=== PATIENT | male | born 1945 | race Caucasian/White ===

== ENCOUNTER 2020-06-16 11:33 | Outpatient (CLI) | payer MEDICARE, SELFPAY ==
--- NOTE | ~2020-06-16 | XR_ITS ---
XR abdomen/kub 1V DATE: 06/16/2020 11:48 INDICATION: Nausea and vomiting TECHNIQUE: AP projection, 2 views COMPARISON: None FINDINGS: There is prominent rotatory levoscoliosis and severe multilevel degenerative disc disease o f the lumbar spine. There is deformity of the right iliac crest possibly related to bone graft harves ting versus old trauma. Surgical clips overlie the right upper quadrant, consistent with cholecystectomy. There is no evidence of bowel obstruction. No apparent intraperitoneal free air or visceromegaly. Art erial calcifications are noted including prominent common and femoral artery calcifications, abdomina l aortic and renal artery calcifications. The lung bases appear clear. Heart size appears normal. IMPRESSION: Status post cholecystectomy Nonspecific bowel gas pattern Reviewed, dictated and finalized at [facility]. Reviewed, dictated and finalized at [facility].
== END 2020-06-16 11:34 | disposition home or self-care (01) ==
LOC: ANHIMG 11:41
PROVIDERS: PCP Family Medicine; Visit Provider Family Medicine
DX: R11.2 Nausea with vomiting, unspecified (principal); Z90.49 Acquired absence of other specified parts of digestive tract
CPT/HCPCS: 74018

== ENCOUNTER 2021-06-27 11:10 | Outpatient (CLI) | payer MEDICARE, SELFPAY ==
--- NOTE | ~2021-06-27 | US_ITS ---
EXAMINATION: US renal BI EXAM DATE: 06/27/2021 11:29 INDICATION: I10 - Essential (primary) hypertension HTN. TECHNIQUE: Multiple grayscale and Doppler images of the kidneys were obtained (by a technologist who performed the scan) and subsequently reviewed. There is no prior study for comparison. FINDINGS: Right kidney: There is normal contour and echogenicity. It measures 8.3 x 4.9 x 4.2 centimeters. Th ere are no focal renal lesions identified. There is no hydronephrosis. Left kidney: There is normal contour and echogenicity. It measures 8.8 x 4.4 x 4.9 centimeters. The re are no focal renal lesions identified. There is no hydronephrosis. Prostatomegaly, prostate bulging into the bladder. IMPRESSION: 1. Sonographically unremarkable kidneys. 2. Prostatomegaly. Reviewed, dictated and finalized at [facility].
== END 2021-06-27 11:11 | disposition home or self-care (01) ==
LOC: ANHIMG 11:11
PROVIDERS: PCP Family Medicine; Visit Provider Nurse Practitioner Family
DX: I10 Essential (primary) hypertension (principal); N28.9 Disorder of kidney and ureter, unspecified; N40.0 Benign prostatic hyperplasia without lower urinary tract symptoms
CPT/HCPCS: 76775

== ENCOUNTER 2025-06-10 11:56 | Outpatient (CLI) | payer MEDICARE, SELFPAY ==
--- OUTSIDE RECORDS SUMMARY | 2025-06-10 11:59 | XMS_ITS | Referral Summary ---
Author Organization [facility] [address] Address [address] [place] [address] Phone Care Team Providers Care Botany Teacher Name Role Phone Clara Pena MD Primary Care Provider Allergies Active Allergy Reactions Criticality Noted Date Comments Prednisone Nausea only Low 05/25/2019 1st time reaction 10/2018 Warfarin Nausea only Low Medications tamsulosin (FLOMAX) 0.4 mg extended release capsule TAKE ONE CAPSULE BY MOUTH ONCE DAILY 30 MINUTES FOLLOWING THE SAME MEAL 30 capsule 1 9 Active fenofibrate (TRIGLIDE) 160 mg tablet TAKE ONE TABLET BY MOUTH ONCE DAILY 90 tablet 11 9 Active HYDROcodone-adryan taminophen (NORCO) 5-325 mg per tablet Take 1 tablet by mouth every 8 (eight) hours as needed for pain 9 Active busPIRone (BUSPAR) 5 mg tablet Take 1 tablet (5 mg total) by mouth 2 (two) times a day as needed 3 Active lactulose 0.67 gram/mL solution Take 15 mL (10 g total) by mouth daily 3 Active lisinopriL (PRINIVIL,ZESTR IL) 40 mg tablet Take 1 tablet (40 mg total) by mouth daily 3 Active QUEtiapine (SEROquel) 50 mg tablet Take 1 tablet (50 mg total) by mouth nightly 3 Active amLODIPine (NORVASC) 5 mg tabletIndicatio ns:hypertension Take 1 tablet (5 mg total) by mouth daily 30 tablet 4 Active aspirin 81 mg chewable tabletIndicatio ns:acute myocardial infarction Take 1 tablet (81 mg total) by mouth daily 30 tablet 4 Active atorvastatin (LIPITOR) 20 mg tablet Take 1 tablet (20 mg total) by mouth daily 30 tablet 4 Active carvediloL (COREG) 12.5 mg tablet Take 1 tablet (12.5 mg total) by mouth 2 (two) times a day with meals 60 tablet 11 4 Active clopidogreL (PLAVIX) 75 mg tablet Take 1 tablet (75 mg total) by mouth daily 30 tablet 11 4 Active nitroglycerin (NITROSTAT) 0.4 mg SL tabletIndicatio ns:acute myocardial infarction Place 1 tablet (0.4 mg total) under the tongue every 5 (five) minutes as needed for chest pain 90 tablet [address] (PROTONIX) 40 mg EC tablet Take 20 mg by mouth every morning 4 Active furosemide (LASIX) 20 mg tablet Take 1 tablet (20 mg total) by mouth every morning 4 Active cephalexin (KEFLEX) 500 mg capsule TAKE 1 CAPSULE BY MOUTH EVERY 8 HOURS 4 Active Active Problems Problem Noted Date Diagnosed Date NSTEMI (non-ST elevated myocardial infarction) 0 01/04/2024 Elevated troponin 01/03/2024 Small bowel obstruction 04/11/2023 Acute kidney injury 04/11/2023 Bowel obstruction 04/11/2023 Spinal stenosis of lumbar re 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 Complains some low back pain as well he has absolutely no sciatica he can do a straight leg raise without difficulty. He has good flexion of his hips. However on palpating over lateral and posterior hip left side he has considerable pain in this come in standing and beginning walking is pain in that area as well. Plans at this time trial of prednisone 20 mg daily for 2 weeks patient advised given a progress report in 2 weeks. Sacral back pain 09/11/2018 Assessment & Plan (09/11/2018 2:47 PM CDT): Pain over the sacrum the x7 days a no significant radiculopathy pain is very because the worse with movement getting up from a chair in walking.. Examination no masses felt some pain on palpating over sacral. Plans try Sarah prednisone 40 mg a day for 2 days and 20 mg for 6 days.. This fails proceed with low back x-rays.. Exposure to hepatitis C 05/13/2018 Assessment & Plan (05/13/2018 2:59 PM CDT): Hepatitis C antibody will be ordered as recommended by CDC. Well adult exam 05/13/2018 Immunization due 05/13/2018 Assessment & Plan (05/13/2018 3:36 PM CDT): Patient's [facility] in [facility] states that his pneumonia vaccine is due this is inaccurate patient had a Pneumovax vaccine September 24, 2012 and Prevnar was given 11/17/2014. At this time is declining the Tdap and zoster vaccine. Other seborrheic keratosis 05/13/2018 Assessment & Plan (05/13/2018 3:37 PM CDT): Lesion right-sided scalp seborrheic keratosis versus early melanoma. Referred to Dr. Dai for removal if deemed necessary. Type 2 diabetes mellitus wit h hyperosmolarity without coma, without long-term current use of insulin 08/20/2017 Assessment & Plan (11/06/2018 3:49 PM PAPER PRODUCTION ENGINEER): Diabetes has been very well controlled his hemoglobin HgbA1c is been 6.3 twice in the past 14 months. No change in therapy patient's body mass index 26.71 no read need to lose weight or make any lifestyle adjustments. Assessment & Plan (09/11/2018 5:58 PM CDT): Diabetes is unchanged. Continue current treatment regimen. Reminded to bring in blood sugar diary at next visit. Dietary recommendations for ADA diet. Regular aerobic exercise. Discussed ways to avoid symptomatic hypoglycemia. Discussed sick day management. Discussed foot care. Diabetes will be reassessed in 6 months. Patient's HgbA1c is been consistently less than 6.5 Assessment & Plan (05/13/2018 2:57 PM CDT): Diabetes is unchanged. Continue current treatment regimen. Reminded to bring in blood sugar diary at next visit. Dietary recommendations for ADA diet. Discussed ways to avoid symptomatic hypoglycemia. Discussed sick day management. Discussed foot care. Diabetes will be reassessed in 6 months. Diabetes well controlled for the past 2 years. Patient's courage to get an eye exam vital have 1 on record. I discussed with importance to get his eyes checked is a diabetic. This needs to be done on annual basis. Patient's foot exam was perfectly normal. Assessment & Plan (08/20/2017 4:17 PM CDT): Diabetes is unchanged. Continue current treatment regimen. Reminded to bring in blood sugar diary at next visit. Dietary recommendations for ADA diet. Discussed ways to avoid symptomatic hypoglycemia. Discussed sick day management. Discussed foot care. Diabetes will be reassessed in 6 months. Patient reminded to make sure he gets his eye exam annually. Diabetes continues to be in great shape. Lipid profile is included with his diabetes study. Hyperlipidemia 04/16/2014 Overview (03/05/2017): Hyperlipidemia Assessment & Plan (05/13/2018 2:59 PM CDT): Will update patient's lipid profile today. Patient tolerating medications well previous lipid profile had only minor changes present. Benign prostatic hyperplasia 04/16/2014 Overview (03/07/2017): BPH (benign prostatic hypertrophy) Assessment & Plan (05/13/2018 3:39 PM CDT): Symptom control with use of Flomax. Uncontrolled hypertension 04/16/2014 Overview (03/07/2017): Hypertension Assessment & Plan (11/06/2018 3:50 PM PAPER PRODUCTION ENGINEER): . Patient's blood pressure is elevated higher than usual today secondary to being in pain no change in medications Assessment & Plan (09/11/2018 5:59 PM CDT): Hypertension is unchanged. Continue current treatment regimen. Dietary sodium restriction. Regular aerobic exercise. Continue current medications. Blood pressure will be reassessed at the next regular appointment. Assessment & Plan (05/13/2018 2:57 PM CDT): Hypertension is unchanged. Continue current treatment regimen. Dietary sodium restriction. Continue current medications. Blood pressure will be reassessed at the next regular appointment. Assessment & Plan (08/20/2017 4:17 PM CDT): Hypertension is unchanged. Continue current treatment regimen. Dietary sodium restriction. Continue current medications. Blood pressure will be reassessed at the next regular appointment. Immunizations Immunization Administration Dates Next Due Influenza, Unspecified 09/02/2018,08/27/2017 Pneumococcal Conjugate PCV 13 03/24/2015, 014 Pneumococcal Conjugate, Unspecified 03/21/2015,1 01/18/2014 Social History Tobacco Use Types Packs/Day Years Used Date Smoking Tobacco: Former Smokeless Tobacco: Never Tobacco Cessation:Counseling Given: Not Answered Alcohol Use Standard Drinks/Week Comments No 0 (1 standard drink = 0.6 oz pur e alcohol) [facility] Utilities Answer Date Recorded In the past 12 months has [employer], [employer], or water [employer] threatened to shut off services in your home? No 01/05/2024 Social Connection and Isolat ion Panel [NHANES] Answer Date Recorded In a typical week, how many times do you talk on the phone with family, friends, or neighbors? Twice a week 01/05/2024 How often do you get togethe r with friends or relatives? More than three times a week 01/05/2024 Attends [employer] Services Not on file 01/05 Active Member of Clubs or Organizations Not on f ile 01/05/2024 Attends Club or Organization Meetings Not on terese e 01/05/2024 Are you , , di vorced, , never , or living with a partner? 01/05/2024 AUDIT-C Answer Date Recorded Q1: How often do you have a drink containing alc ohol? Never 01/03/2024 Average Number of Drinks Not on file 024 Frequency of Binge Drinking Not on file 01/2024 Overall Financial Resource Strain (CARDIA) Answe r Date Recorded How hard is it for you to pa y for the very basics like food, housing, medical care, and heating? Not hard at all 01/05/2024 PHQ-2 Answer Date Recorded PHQ-2 Total Score (If total score is 3 or more points, staff should administer the PHQ-9) 0 01/03/2024 Hunger Vital Sign Answer Date Recorded Within the past 12 months, y ou worried that your food would run out before you got the money to buy more. Never true 01/05/20 24 Within the past 12 months, t he food you bought just didn't last and you didn't have money to get more. Never true 01/05/2024 PRAPARE - Transportation Answer Date Re corded In the past 12 months, has l ack of transportation kept you from medical appointments or from getting medications? No 03/2024 In the past 12 months, has l ack of transportation kept you from meetings, work, or from getting things needed for daily living? No 01/05/2024 Housing Stability Vital Sign Answer Kenneth e Recorded In the last 12 months, was t here a time when you were not able to pay the mortgage or rent on time? No 01/05/2024 In the last 12 months, how many places have you lived? 2 01/05/2024 In the last 12 months, was t here a time when you did not have a steady place to sleep or slept in a skilled nursing (including now)? No 01/05/2024 Personal Safety Answer Date Recorded Have you ever been in or are you currently in a harmful physical or emotional relationship or is someone making you feel afraid or unsafe? Denies 01/03/2024 Sex and Gender Information Value Date Recorded Sex Assigned at Not on file Legal Sex Male 10:07 AM PAPER PRODUCTION ENGINEER Gender Identity Not on file Sexual Orientation Not on file Last Filed Vital Signs Vital Sign Reading Time Taken Comments Blood Pressure 152/99 09/10/2024 2:02 PM CDT Pulse 118 09/10/2024 2:02 PM CDT Temperature 36.3 C (97.4 F) 01/06/2024 3:00 PM PAPER PRODUCTION ENGINEER Respiratory Rate 18 09/10/2024 2:02 PM CDT Oxygen Saturation 100% 01/06/2024 3:00 PM PAPER PRODUCTION ENGINEER Inhaled Oxygen Concentration - - Weight 66.7 kg (147 lb) 09/10/2024 2:02 PM CDT Height 172.7 cm (5' 8) 09/10/2024 2:02 PM CDT Body Mass Index 22.35 09/10/2024 2:02 PM CDT Plan of Treatment Not on file Medical Devices Implanted Type Area Sled Maker Device Identifier Shelf Expiration Date Model / Serial / Lot [employer]/C R Bard 6x3in Large Pore Knit Monofilament Smooth [place] [id number] - [id number] Implanted:Qty: 1 on 04/11/2023 by Cesario Hook MD at [facility] Mesh Left: Inguinal [employer]/C R Bard [id number] 08/28/2027 [id number] / / [id number] [employer] Noman Synergy Xd Monorail 2.5mm 28mm 144cm Delivery System 1 Access [id number] - [id number] Implanted:Qty: 1 on 01/05/2024 by Lake Cook MD at [facility] Stent [employer] Noman 09/10/2024 [id number] / / [id number] Procedures Procedure Name Priority Date/Time Associated Diagnosis Comments EGFR Routine 01/06/2024 3:49 AM PAPER PRODUCTION ENGINEER HEMOGLOBIN A1C Routine 01/04/2024 2:16 AM PAPER PRODUCTION ENGINEER LIPID PANEL Routine 01/04/2024 2:16 [address]ER [address] ABDOMEN PELVIS W CONTRAST ED 04/11/2023 2:58 AM CDT ALBUMIN CREATININE RATIO, URINE Routine 05/11/2018 3:50 PM CDT Type 2 diabetes mellitus with hyperosmolarity without coma, without long-term current use of insulin (HCC) from Last 3 Months or Most Recently Relevant to Health Maintenance Results * eGFR (01/06/2024 3:49 AM PAPER PRODUCTION ENGINEER) eGFR 74 mL/min/1. 73 m2 [facility] ([place]) Comment: Interpretive Data Reference Interval Normal >/= 90 mL/min/1.73m2 Mildly decreased* 60 - 89 mL/min/1.73m2 Mildly to moderately decreased 45 - 59 mL/min/1.73m2 Moderately to severely decreased 30 - 44 mL/min/1.73m2 Severely decreased 15 - 29 mL/min/1.73m2 Kidney Failure < 15 mL/min/1.73m2 *Relative to young adult level Estimated glomerular filtration rate is determined by the 2020 CKD-EPI equation recommended by the National Kidney Foundation (A Unifying Approach to GFR Estimation: Recommendations of the NKF-ASK Task Force on Reassessing the Inclusion of Race in Diagnosing Kidney Disease, JASN 2020). The CKD-EPI equation should not be used for patients with unstable renal function and has not been validated in children and those over 70. Current interpretive data was last reviewed 2021. Blood 01/06/2024 3:49 AM PAPER PRODUCTION ENGINEER 01/06/2024 3:56 AM PAPER PRODUCTION ENGINEER us Susu Howard MD LAB BLOOD ORDERABLES Fi nal Result [facility] ([place]) [facility] Department [place] [address] * (ABNORMAL) Hemoglobin A1c (01/04/2024 2:16 AM PAPER PRODUCTION ENGINEER) Hgb A1C 6.1(H) 4.0 - 5.6 % [facility] ([place]) Estimated Average Glucose 128 mg/dL [facility] ([facility]) Comment: The ADA recommends reporting an estimated Average Glucose (eAG) with all Hemoglobin A1c results using the equation derived from a study of 507 normal and diabetic adults. Minority populations were underrepresented and children were not included. (Diabetes Care 31:8164-1022, 2008). The eAG is not equivalent to a fasting glucose. Blood 01/04/2024 2:16 AM PAPER PRODUCTION ENGINEER 01/04/2024 2:53 AM PAPER PRODUCTION ENGINEER us Susu Howard MD LAB BLOOD ORDERABLES Fi nal Result [facility] ([facility]) [facility] Department [place] [address] * (ABNORMAL) Lipid panel (01/04/2024 2:16 AM PAPER PRODUCTION ENGINEER) Cholesterol 180 30 - 199 mg/dL [facility] ([facility]) Comment: Interpretive Data Ages < or = 19 years Acceptable: <170 mg/dL Borderline high: 170-199 mg/dL High: >or= 200 mg/dL Ages > or = 20 years Desirable: <200 mg/dL Borderline high: 200-239 mg/dL High: >or= 240 mg/dL Literature References: 1. Expert Panel on Integrated Guidelines for Cardiovascular Health and Risk Reduction in Children and Adolescents. Pediatrics 2011;128:S213 2. NCEP Expert Panel. Circulation 2004;110:227 Current Interpretive Data was last revised on 2018. Triglycerides 227(H) <=149 mg/dL [facility] ([facility]) Comment: Interpretive Data Ages < or = 9 years Acceptable: <75 mg/dL Borderline high: 75-99 mg/dL High: >or= 100 mg/dL Ages 10 to 20 years Acceptable: <90 mg/dL Borderline high: 90-129 mg/dL High: >or= 130 mg/dL Ages > or = 20 years Desirable: <150 mg/dL Borderline high: 150-199 mg/dL High: 200-499 mg/dL Very high: >or= 499 mg/dL Literature References: 1. Expert Panel on Integrated Guidelines for Cardiovascular Health and Risk Reduction in Children and Adolescents. Pediatrics 2011;128:S213 2. NCEP Expert Panel. Circulation 2004;110:227 Current Interpretive Data was last revised on 2018. HDL 29(L) >=40 mg/dL [facility] ([facility]) Comment: Interpretive Data Ages < or = 19 years Acceptable: >45 mg/dL Borderline low: 40-45 mg/dL Low: <40 mg/dL Ages > or = 20 years Desirable: >or= 60 mg/dL Low: <40 mg/dL Literature References: 1. Expert Panel on Integrated Guidelines for Cardiovascular Health and Risk Reduction in Children and Adolescents. Pediatrics 2011;128:S213 2. NCEP Expert Panel. Circulation 2004;110:227 Current Interpretive Data was last revised on 2018. LDL, calculated 106 <=129 mg/dL [facility] ([facility]) Comment: Interpretive Data Ages < or = 19 years Acceptable: <110 mg/dL Borderline high: 110-129 mg/dL High: >or= 130 mg/dL Ages > or = 20 years Optimal: <100 mg/dL Near optimal: 100-129 mg/dL Borderline high: 130-159 mg/dL High: >160 mg/dL Literature References: 1. Expert Panel on Integrated Guidelines for Cardiovascular Health and Risk Reduction in Children and Adolescents. Pediatrics 2011;128:S213 2. NCEP Expert Panel. Circulation 2004;110:227 Current Interpretive Data was last revised on 2018. Non-HDL Cholesterol 151 mg/dL [facility] ([facility]) Comment: Interpretive Data Ages < or = 19 years Acceptable: <120 mg/dL Borderline high: 120-144 mg/dL High: >145 mg/dL Ages > or = 20 years When triglycerides are >200 mg/dL, Non-HDL cholesterol is a secondary target of therapy with treatment goals that are 30 mg/dL greater than the LDL cholesterol target. Literature References: 1. Expert Panel on Integrated Guidelines for Cardiovascular Health and Risk Reduction in Children and Adolescents. Pediatrics 2011;128:S213 2. NCEP Expert Panel. Circulation 2004;110:227 Current Interpretive Data was last revised on 2018. Chol/HDL ratio 6 [facility] R [facility] ([place]) Blood 01/04/2024 2:16 AM PAPER PRODUCTION ENGINEER 01/04/2024 2:53 AM PAPER PRODUCTION ENGINEER us Susu Howard MD LAB BLOOD ORDERABLES Fi nal Result [facility] ([facility]) 1 [facility] Department [place] [address] * CT Abdomen Pelvis W Contrast (04/11/2023 2:58 AM CDT) Anatomical Region Laterality Modality Body N/A Computed Tomogra phy 04/11/2023 3:24 AM CDT Narrative 04/11/2023 3:30 AM CDT EXAM DESCRIPTION: CT ABDOMEN PELVIS W CONTRAST REASON FOR STUDY: Bowel obstruction high-grade suspected C/o nausea, vomiting, and generalized abdominal pain for 2-3 days. Pt states coffee ground emesis. Last bowel movement was 2 days ago. Hx of HTN, type 2 diabetes mellitus No abdominal surgery Pt was hydrated prior to exam TECHNIQUE: CT scan of the abdomen and pelvis was performed with intravenous and without oral contrast using helical scanning technique with dynamic intravenous contrast injection. Reconstructed coronal and sagittal MPR images were reviewed. All images stored on PACS. Automated exposure control was used as a dose optimization technique for this examination. CONTRAST TYPE/DOSE: 100mL of IOVERSOL 350 MG IODINE/ML INTRAVENOUS SYRINGE injected via right arm IV . COMPARISON: None Available . REFERENCE: Per ACR white paper recommendations, unless otherwise specified no follow-up imaging is recommended for incidental renal and adrenal lesions per consensus recommendations based on imaging criteria. Further lab evaluation could be pursued based on clinical findings. FINDINGS: LOWER CHEST: No significant findings. LIVER: Normal size. No cystic or solid masses. GALLBLADDER: Surgically absent. BILE DUCTS: No intrahepatic or extrahepatic biliary ductal dilatation. SPLEEN: Normal size. No focal lesions. PANCREAS: No cystic or solid masses. No significant calcifications. No adjacent inflammation or peripancreatic fluid collections. Pancreatic duct not dilated. ADRENALS: Normal. KIDNEYS/URINARY TRACT: No significant cystic or solid masses. No evidence of nephrolithiasis. No hydronephrosis or hydroureter. Symmetric enhancement. The urinary bladder is unremarkable. GI: Multiple dilated loops of small bowel compatible with small bowel obstruction. These measure up to 5 cm in diameter. Transition point is in the left inguinal hernia containing a short segment loop of small bowel. PERITONEUM: No ascites or pneumoperitoneum RETROPERITONEUM: No mass or adenopathy. REPRODUCTIVE: No significant abnormality. VASCULATURE: No abdominal aortic aneurysm. MUSCULOSKELETAL: No significant abnormality. OTHER: No other abnormality. IMPRESSION: Small-bowel obstruction with transition point in the left inguinal hernia containing a short segment loop of small bowel. These results were communicated by phone to the ordering provider at the time of interpretation, 3:30 a.m. 04/11/2023. . Central Standard Time (PAPER PRODUCTION ENGINEER) THIS IS AN ELECTRONICALLY VERIFIED FINAL REPORT 04/11/2023 3:30 AM - Electronically signed by Von Long M.D. RW: LEOPOLDO Report ID: [id number] Reading Location: [place] [address] Procedure Note Von Long MD - 04/11/2023 EXAM DESCRIPTION: CT ABDOMEN PELVIS W CONTRAST REASON FOR STUDY: Bowel obstruction high-grade suspected C/o nausea, vomiting, and generalized abdominal pain for 2-3 days. Ptstates coffee ground emesis. Last bowel movement was 2 days ago. Hx of HTN, type2 diabetes mellitus No abdominal surgery Pt was hydrated prior to exam TECHNIQUE: CT scan of the abdomen and pelvis was performed withintravenous and without oral contrast using helical scanning technique with dynamic intravenous contrast injection. Reconstructed coronal and sagittal MPRimages were reviewed. All images stored on PACS. Automated exposure control was used as a dose optimization technique forthis examination. CONTRAST TYPE/DOSE: 100mL of IOVERSOL 350 MG IODINE/ML INTRAVENOUSSYRINGE injected via right arm IV . COMPARISON: None Available . REFERENCE: Per ACR white paper recommendations, unless otherwise specifiedno follow-up imaging is recommended for incidental renal and adrenal lesionsper consensus recommendations based on imaging criteria. Further labevaluation could be pursued based on clinical findings. FINDINGS: LOWER CHEST: No significant findings. LIVER: Normal size. No cystic or solid masses. GALLBLADDER: Surgically absent. BILE DUCTS: No intrahepatic or extrahepatic biliary ductal dilatation. SPLEEN: Normal size. No focal lesions. PANCREAS: No cystic or solid masses. No significant calcifications. No adjacent inflammation or peripancreatic fluid collections. Pancreatic ductnot dilated. ADRENALS: Normal. KIDNEYS/URINARY TRACT: No significant cystic or solid masses. Noevidence of nephrolithiasis. No hydronephrosis or hydroureter. Symmetric enhancement. The urinary bladder is unremarkable. GI: Multiple dilated loops of small bowel compatible with small bowel obstruction. These measure up to 5 cm in diameter. Transition point isin the left inguinal hernia containing a short segment loop of small bowel. PERITONEUM: No ascites or pneumoperitoneum RETROPERITONEUM: No mass or adenopathy. REPRODUCTIVE: No significant abnormality. VASCULATURE: No abdominal aortic aneurysm. MUSCULOSKELETAL: No significant abnormality. OTHER: No other abnormality. IMPRESSION: Small-bowel obstruction with transition point in the left inguinal hernia containing a short segment loop of small bowel. These results were communicated by phone to the ordering provider at the time of interpretation, 3:30 a.m. 04/11/2023. . Central Standard Time(PAPER PRODUCTION ENGINEER) THIS IS AN ELECTRONICALLY VERIFIED FINAL REPORT 04/11/2023 3:30 AM - Electronically signed by Von Long M.D. RW: LEOPOLDO Report ID: [id number] Reading Location: [id number] us Neptali Go MD IMG CT PROCEDURES Final Result * Microalbumin / creatinine ratio, urine, random (05/11/2018 3:50 PM CDT) Creatinine, ur 74 20 - 370 mg/dL [facility] [employer] Microalbumin, ur 0.3 See Note: mg/dL [facility] [employer] Comment: Reference Range: Reference Range Not established Microalbumin/creat ratio 4 <30 mcg/mg creat [facility] [employer] Comment: The ADA defines abnormalities in albumin excretion as follows: Category Result (mcg/mg creatinine) Normal <30 Microalbuminuria 30-299 Clinical albuminuria > OR = 300 The ADA recommends that at least two of three specimens collected within a 3-6 month period be abnormal before considering a patient to be within a diagnostic category. 05/11/2018 3:50 PM CDT 05/11/2018 3:51 PM CDT Narrative Resulting Agency Comment Performing Organization Information: Site ID: [place] Name: [facility] [place] Address: [address] [place] [address] Director: Drake Cartwright D.O., MPH us Drake Palma MD LAB URINE ORDERABLES Final Result [facility] [place] from Last 3 Months or Most Recently Relevant to Health Maintenance Insurance MEDICARE [facility] MEDICARE MEDICARE [facility] MEDICARE BLUE CROSS MEDICARE SUPPLEMENT Advance Directives For more information, please contact: [phone] * Full Code (Latest Code Status on File) Date Activated Date Inactivated Comments 01/03/2024 8:37 PM 01/06/2024 9:11 PM * Full Code Date Activated Date Inactivated Comments 01/03/2024 7:42 PM 01/03/2024 8:37 PM * Full Code Date Activated Date Inactivated Comments 04/11/2023 8:32 AM 04/16/2023 10:04 PM Healthcare Agents on File Name Relationship Healthcare Agent Relationshi p Communication Winston Rivers Daughter Health Care Agent Care Teams Botany Teacher Relationship Specialty Start Date End Date Clara Pena MD [address] [facility] [address] [place] [address] PCP - General Family Medicine 01/28/23
--- OUTSIDE RECORDS SUMMARY | 2025-06-10 11:59 | XMS_ITS | Clinical Summary ---
Author Organization [facility] Address [address] [place] [address] Care Team Providers Care Centrifugal Chiller Technician Name Role Phone Clara Pena MD Primary Care Provider [phone] Social History Tobacco Use Types Packs/Day Years Used Date Smoking Tobacco: Never Assessed Sex and Gender Information Value Date Recorded Sex Assigned at Not on file Legal Sex Male 12:21 AM CDT Gender Identity Not on file Sexual Orientation Not on file Plan of Treatment Health Maintenance Due Date Last Done Comments Hepatitis C Virus (HCV) Screening 1945 TdaP Immunization 1945 Zoster Immunization (2 of 3) 07/16/2013 05/21/2013 Pneumococcal Immunization (50+ years) (2 of 2 - PPSV23) 03/24/2016 03/24/2015, 03/21/2015, 11/17/2014, Additional history exists Respiratory Syncytial Virus (RSV) Immunization (Adult) (1 - 1-dose 75+ series) 2018 SARS-COV-2 Immunization ( season) 2024 12/19/2021, 02/23/2021, 01/26/2021 Influenza Immunization (#1) 08/01/202512/01, 09/04/2020, 08/12/2019, Additional history exists Hepatitis B Immunization Aged Out No longer eligible based on patient's age to complete this topic Human Papillomavirus (HPV) Immunization Aged Out No longer eligible based on patient's age to complete this topic Meningococcal Immunization (ACWY) Aged Out No longer eligible based on patient's age to complete this topic Rotavirus Immunization Aged Out No lo nger eligible based on patient's age to complete this topic Insurance MEDICARE Member Subscriber Plan / Payer (Ef fective 2008-Present) Name:Drake Caceres Member ID:[id number] Relation to Subscriber:Self Name:Drake Caceres Subscriber ID:[id number] Payer ID:[id number] Group ID:Not on file Type:Not on file Address: [address] [facility] [place] [address] [facility] Care Teams Centrifugal Chiller Technician Relationship Specialty Start Date End Date Clara Pena MD [address] [facility] [address] [facility] [address] [place] [address] PCP - General Family Medicine 05/12/23
--- OUTSIDE RECORDS SUMMARY | 2025-06-10 11:59 | XMS_ITS | Clinical Summary ---
Author Organization [facility] Address [address] [place] [address] Care Team Providers Care Animal Rides Manager Name Role Phone Drake Palma MD Primary Care Provider [phone] Source Comments [facility],non-owned Affiliates and Associated Physician Practices is amultiple site organization consisting of ambulatory clinics and hospital sitesin [place], [place], [place] and [place]. This disclosure is being madepursuant to the Care Everywhere program and may not contain all information available regarding this patient. Last updated 18.[facility] Allergies Active Allergy Reactions Criticality Noted Date Comments Warfarin 10/29/2016 Allergic to blood thinner- thinks it was coumadin Medications * Be aware that medications may not be up to date on this document. Alwaysverify current medications with the patient. METFORMIN HCL PO Act rodolfo LABETALOL HCL PO Act rodolfo TAMSULOSIN HCL PO Ac tive SIMVASTATIN PO Activ e QUINAPRIL HCL PO Act rodolfo FENOFIBRATE PO Activ e DULoxetine HCl (CYMBALTA PO) Active Active Problems Problem Noted Date Diagnosed Date Chronic pain 10/29/2016 Anxiety 10/29/2016 Diabetes mellitus type II, c ontrolled, with no complications 10/29/2016 Hypercholesteremia 10/29/2016 Benign prostatic hyperplasia 10/29/2016 Overview (05/24/2017): IMO Update 05/31/2017 Social History Tobacco Use Types Packs/Day Years Used Date Smoking Tobacco: Never Assessed Sex and Gender Information Value Date Recorded Sex Assigned at Not on file Legal Sex Male 9:12 AM ACID CRANE OPERATOR Gender Identity Not on file Sexual Orientation Not on file Last Filed Vital Signs Vital Sign Reading Time Taken Comments Blood Pressure 146/72 10/29/2016 10:49 AM ACID CRANE OPERATOR Pulse 88 10/29/2016 10:49 AM ACID CRANE OPERATOR Temperature 37.1 C (98.8 F) 10/29/2016 10:49 AM ACID CRANE OPERATOR Respiratory Rate - - Oxygen Saturation - - Inhaled Oxygen Concentration - - Weight 74.8 kg (165 lb) 10/29/2016 10:49 AM ACID CRANE OPERATOR Height 177.8 cm (5' 10) 10/29/2016 10:49 AM ACID CRANE OPERATOR Body Mass Index 23.68 10/29/2016 10:49 AM ACID CRANE OPERATOR Plan of Treatment Health Maintenance Due Date Last Done Comments DTAP/TDAP/TD VACCINES (1 - Tdap) 1962 PNEUMOCOCCAL VACCINE 50+ (1 of 1 - PCV) 1993 ZOSTER VACCINE (1 of 2) 1993 Respiratory Syncytial Virus (RSV) Vaccine Pt: or over 60 yrs (1 - 1-dose 75+ series) 2018 COVID-19 VACCINE ( - 2023-2 5 season) 2024 DEPRESSION SCREENING 12/01/2024 INFLUENZA VACCINE (Season Ended) 2025 HEPATITIS B VACCINE Aged Out No longe r eligible based on patient's age to complete this topic HIB VACCINE Aged Out No longer eligi ble based on patient's age to complete this topic HPV VACCINE Aged Out No longer eligi ble based on patient's age to complete this topic MENINGOCOCCAL (Group B) VACC INE SHARED DECISION-MAKING Aged Out No longer eligibl e based on patient's age to complete this topic MENINGOCOCCAL GROUPS A/C/Y/W VACCINE Aged Out No longer eligible b ased on patient's age to complete this topic Insurance MEDICARE [facility] MEDICARE Care Teams Animal Rides Manager Relationship Specialty Start Date End Date Drake Palma MD PCP - General 10/29/16
--- OUTSIDE RECORDS SUMMARY | 2025-06-10 11:59 | XMS_ITS | Clinical Summary ---
Author Organization [facility] [address] Address [address] [place] [address] Phone Care Team Providers Care Metal Mine Inspector Name Role Phone Clara Pena MD Primary [...] L3-4 level 11/25/2018 DDD (degenerative disc disease), [id number] va cuum disc 11/25/2018 Low back pain radiating to left leg 11/18/2018 Spondylolisthesis of lumbosa cral region-L5 on sacrum grade 1-2 11/18/2018 Other idiopathic scoliosis, lumbar region 2017 Trochanteric bursitis 11/06/2018 Assessment & Plan (11/06/2018 3:49 PM PRESSED OR BLOWN GLASS WORKER): Patient having lot of pain over his [...] 3:36 PM CDT): Patient's chart chart in [facility] states that his pneumonia vaccine is due [...] 08/20/2017 Assessment & Plan (11/06/2018 3:49 PM PRESSED OR BLOWN GLASS WORKER): Diabetes has been very well controlled his [...] Hypertension Assessment & Plan (11/06/2018 3:50 PM PRESSED OR BLOWN GLASS WORKER): . Patient's blood pressure is elevated higher [...] 03/24/2015, 014 Pneumococcal Conjugate, Unspecified 03/21/2015,1 01/18/2014 Surgical History Surgery Date Site/Laterality Comments JOINT REPLACEMENT Right knee FRACTURE SURGERY Right castellanos CARDIAC STENT PLACEMENT Medical History Medical History Date Comments Arthritis Hypertension pcp treating HTN Anemia Anxiety Family History Medical History Relation Name Comments Cancer Brother Diabetes Brother Lung cancer Brother Early Father Heart attack Father Heart disease Father Arthritis Mother Diabetes Sister Relation Name Status Comments Brother Father Mother Sister Social History Tobacco Use Types Packs/Day Years Used Date Smoking Tobacco: Former Smokeless Tobacco: Never Tobacco Cessation:Counseling Given: Not Answered Alcohol Use Standard Drinks/Week Comments No 0 (1 standard drink = 0.6 oz pur e alcohol) [facility] Utilities Answer Date Recorded In the past 12 months has e [employer], gas, oil, or water [employer] threatened to shut off services in your home? No 01/05/2024 Social Connection and Isolat ion Panel [NHANES] Answer Date Recorded In a typical week, how many times do you talk on the phone with family, friends, or neighbors? Twice a week 01/05/2024 How often do you get togethe r with friends or relatives? More than three times a week 01/05/2024 Attends [employer] Services Not on file 01/05 Active Member [...] place to sleep or slept in a [place] health care facility (including now)? No 01/05/2024 Personal Safety Answer Date Recorded Have you ever been in or are you currently in a harmful physical or emotional relationship or is someone making you feel afraid or unsafe? Denies 01/03/2024 Sex and Gender Information Value Date Recorded Sex Assigned at Not on file Legal Sex Male 10:07 AM PRESSED OR BLOWN GLASS WORKER Gender Identity Not on file Sexual Orientation Not on file Obstetrics History Last Filed Vital Signs Vital Sign Reading Time Taken Comments Blood Pressure 152/99 09/10/2024 2:02 PM CDT Pulse 118 09/10/2024 2:02 PM CDT Temperature 36.3 C (97.4 F) 01/06/2024 3:00 PM PRESSED OR BLOWN GLASS WORKER Respiratory Rate 18 09/10/2024 2:02 PM CDT Oxygen Saturation 100% 01/06/2024 3:00 PM PRESSED OR BLOWN GLASS WORKER Inhaled Oxygen Concentration - - Weight 66.7 kg (147 lb) 09/10/2024 2:02 PM CDT Height 172.7 cm (5' 8) 09/10/2024 2:02 PM CDT Body Mass Index 22.35 09/10/2024 2:02 PM CDT Plan of Treatment Health Maintenance Due Date Last Done Comments Dilated Eye Exam 1945 DTaP/Tdap/Td Vaccine (1 - Tdap) 1954 Hepatitis B Screening 1961 Zoster Vaccine (2 of 3) 07/16/2013 05/21/2013 Pneumococcal vaccine 65+ (2 of 2 - PPSV23) 05/19/2015 03/24/2015, 03/21/2015, 11/17/2014, Additional history exists Albumin Creatinine Ratio, Urine 05/11/2019 8 Well Visit 65+ 05/11/2019 05/11/2018 Foot Exam 09/11/2019 09/11/2018, 05/11/2018 Hemoglobin A1C 07/04/2024 01/04/2024, 05/01/2023, 11/06/2018, Additional history exists Covid-19 Vaccine (2023-2 5 season) 2024 12/19/2021, 02/23/2021, 01/26/2021 Depression Screening 01/03/2025 01/03/2024, 11/18/2018, 11/18/2018, Additional history exists Lipid Panel 01/04/2025 01/04/2024, 05/11/2018 Fall Risk Assessment 01/06/2025 01/06/2024, 05/11/20 18 eGFR 01/06/2025 01/06/2024, 03/2024, 01/04/2024, Additional history exists Influenza Vaccine (Season Ended) 2025 12/19/2021, 09/04/2020, 08/12/2019, Additional history exists Abdominal Aortic Aneurysm (A AA) Screen Completed 04/11/2023 Medical Devices Implanted Type Area Interpreter And Translator Device Identifier Shelf Expiration Date Model / Serial / Lot [employer] Inc/C R Bard 6x3in Large Pore Knit Monofilament Smooth [place] [id number] - [id number] Implanted:Qty: 1 on 04/11/2023 by Cesario Hook MD at [facility] Mesh Left: Inguinal [employer]/C R Bard [id number] 08/28/2027 [id number] / / [id number] [employer] Noman Synergy Xd Monorail 2.5mm 28mm 144cm Delivery System 1 Access [id number] - [id number] Implanted:Qty: 1 on 01/05/2024 by Lake Cook MD at [facility] Stent [employer] Noman 09/10/2024 [id number] / / [id number] Procedures Procedure Name Priority Date/Time Associated Diagnosis Comments EGFR Routine 01/06/2024 3:49 AM PRESSED OR BLOWN GLASS WORKER HEMOGLOBIN A1C Routine 01/04/2024 2:16 AM PRESSED OR BLOWN GLASS WORKER LIPID PANEL Routine 01/04/2024 2:16 AM PRESSED OR BLOWN GLASS WORKER CT ABDOMEN PELVIS W CONTRAST ED 04/11/2023 2:58 AM CDT ALBUMIN CREATININE RATIO, URINE Routine 05/11/2018 3:50 PM CDT Type 2 diabetes mellitus with hyperosmolarity without coma, without long-term current use of insulin (HCC) from Last 3 Months or Most Recently Relevant to Health Maintenance Results * eGFR (01/06/2024 3:49 AM PRESSED OR BLOWN GLASS WORKER) eGFR 74 mL/min/1. 73 m2 [facility] ([facility]) Comment: Interpretive Data Reference Interval Normal >/= [...] last reviewed 2021. Blood 01/06/2024 3:49 AM PRESSED OR BLOWN GLASS WORKER 01/06/2024 3:56 AM PRESSED OR BLOWN GLASS WORKER Susu Howard MD LAB BLOOD ORDERABLES nal Result [facility] ([place]) 1 [facility] Department of Laboratories [place], [place] [id number] * (ABNORMAL) Hemoglobin A1c (01/04/2024 2:16 AM PRESSED OR BLOWN GLASS WORKER) Hgb A1C 6.1(H) 4.0 - 5.6 % [facility] ([facility]) Estimated Average Glucose 128 mg/dL [facility] ([facility]) Comment: The ADA recommends reporting an estimated Average Glucose (eAG) with all Hemoglobin A1c results using the equation derived from a study of 507 normal and diabetic adults. Minority populations were underrepresented and children were not included. (Diabetes Care 31:7838-9148, 2008). The eAG is not equivalent to a fasting glucose. Blood 01/04/2024 2:16 AM PRESSED OR BLOWN GLASS WORKER 01/04/2024 2:53 AM PRESSED OR BLOWN GLASS WORKER us Susu Howard MD LAB BLOOD ORDERABLES Fi nal Result [facility] ([place]) 1 [facility] Department of Laboratories [place], [place] [id number] * (ABNORMAL) Lipid panel (01/04/2024 2:16 AM PRESSED OR BLOWN GLASS WORKER) Cholesterol 180 30 - 199 mg/dL [facility] [...] last revised on 2018. Chol/HDL ratio 6 [facility] ([place]) Blood 01/04/2024 2:16 AM PRESSED OR BLOWN GLASS WORKER 01/04/2024 2:53 AM PRESSED OR BLOWN GLASS WORKER us Susu Howard MD LAB BLOOD ORDERABLES Fi nal Result [facility] ([place]) 1 [facility] [place] [address] * CT Abdomen Pelvis W Contrast (04/11/2023 [...] 3:30 a.m. 04/11/2023. . Central Standard Time (PRESSED OR BLOWN GLASS WORKER) THIS IS AN ELECTRONICALLY VERIFIED FINAL REPORT 04/11/2023 3:30 AM - Electronically signed by Von Long M.D. RW: LEOPOLDO Report ID: [id number] Reading Location: [id number] Procedure Note Von Long MD - 04/11/2023 [...] interpretation, 3:30 a.m. 04/11/2023. . Central Standard Time(PRESSED OR BLOWN GLASS WORKER) THIS IS AN ELECTRONICALLY VERIFIED FINAL REPORT 04/11/2023 3:30 AM - Electronically signed by Von Long M.D. RW: LEOPOLDO Report ID: [id number] Reading Location: [place] [address] us Neptali Go MD IMG CT PROCEDURES Final Result * Microalbumin / creatinine ratio, urine, random (05/11/2018 3:50 PM CDT) Creatinine, ur 74 20 - 370 mg/dL [employer] [facility] [place] Microalbumin, ur 0.3 See Note: mg/dL [facility] [place] Comment: Reference Range: Reference Range Not established Microalbumin/creat ratio 4 <30 mcg/mg creat [employer] [facility] [place] Comment: The ADA defines abnormalities in albumin [...] Agency Comment Performing Organization Information: Site ID: [place] Name: [employer] Address: [address] [place] [address] Director: Drake Cartwright D.O., MPH us Drake Palma MD LAB URINE ORDERABLES Final Result [facility] [place] from Last 3 Months or Most Recently Relevant to Health Maintenance Insurance MEDICARE [facility] MEDICARE MEDICARE FORMERLY [facility] MEDICARE BLUE CROSS MEDICARE SUPPLEMENT Advance Directives For more information, please contact: [phone] * Full Code (Latest Code Status on [...] Rivers Daughter Health Care Agent Care Teams Metal Mine Inspector Relationship Specialty Start Date End Date Clara Pena MD [address] [facility] [address] [place] [address] PCP - General Family Medicine 01/28/23
[2025-06-10 12:29] LABS: Hematocrit 35.8 % (42.0-52.0); Hemoglobin 10.9 g/dL (14.0-18.0); Immature Granulocyte Percent A 0.5 % (0-0.5); Lymphocytes Absolute Auto 1.19 K/mm3 (0.9-3.2); Mean Corpuscular HGB Conc 30.4 g/dl (32-36); Mean Corpuscular Hemoglobin 25.6 pg (26-34); Mean Corpuscular Volume 84.0 fl (80-100); Nucleated Red Blood Cells Absolute Auto 0.000 K/mm3 (0.0-0.012); Nucleated Red Blood Cells Perc 0.0 % (0.0-0.2); Platelet Count Result 250 k/mm3 (150-375); Red Blood Count 4.26 M/mm3 (4.6-6.20); White Blood Count 8.3 K/mm3 (4.5-10.0)
[2025-06-10 12:53] LABS: Alanine Aminotransferase 13 U/L (6-50); Albumin Level 3.9 g/dL (3.5-5.1); Alkaline Phosphatase 38 U/L (38-126); Anion Gap 9 mmol/L (4-12); Aspartate Amino Transferase 21 U/L (17-59); Bilirubin,Total 0.6 mg/dL (0.2-1.3); Blood Urea Nitrogen 19 mg/dL (9-20); Calcium 9.2 mg/dL (8.4-10.2); Carbon Dioxide 26 mmol/L (22-30); Chloride 102 mmol/L (98-107); Cholesterol 98 mg/dL (0-200); Estimated Glomerular Filt Rate > 60; Glucose 116 mg/dL (65-110); HDL Direct 35 mg/dL; Potassium 4.2 mmol/L (3.4-5.0); Sodium 137 mmol/L (137-145); Total Protein 6.4 g/dL (6.3-8.2); Triglycerides 77 mg/dL (<150)
== END 2025-06-10 11:57 | disposition home or self-care (01) ==
PROVIDERS: PCP Family Medicine; Visit Provider Family Medicine
DX: I10 Essential (primary) hypertension (principal); E78.5 Hyperlipidemia, unspecified
CPT/HCPCS: 36415; 80053; 80061; 85025